=== PATIENT | female | born 1970 | race Caucasian/White ===

== ENCOUNTER 2019-02-13 11:09 | Emergency (ER) | payer OTHER ==
[~2019-02-13] VITALS: Ht 162.6 cm; Wt 79.4 kg
[2019-02-13 11:56] LABS: BASOPHILS ABSOLUTE AUTO 0.05 K/mm3 (0.00-0.23); BASOPHILS PERCENT AUTO 1 % (0-2); EOSINOPHILS ABSOLUTE AUTO 0.21 K/mm3 (0.00-0.68); EOSINOPHILS PERCENT AUTO 4 % (0-6); Hematocrit 44.7 % (33.0-51.0); Hemoglobin 14.7 g/dL (11.5-16.0); IMMATURE GRAN ABSOLUTE AUTO 0.01 K/mm3 (0.00-0.10); IMMATURE GRAN PERCENT AUTO 0 % (0-1); LYMPHOCYTES ABSOLUTE AUTO 2.23 K/mm3 (0.84-5.20); LYMPHOCYTES PERCENT AUTO 46 % (21-46); MONOCYTES ABSOLUTE AUTO 0.42 K/mm3 (0.16-1.47); MONOCYTES PERCENT AUTO 9 % (4-13); Mean Corpuscular HGB 29.5 pg (26.0-34.0); Mean Corpuscular HGB Conc 32.9 g/dL (31.5-36.5); Mean Corpuscular Volume 90 fL (80-100); Mean Platelet Volume 9.7 fL (9.1-12.4); NEUTROPHILS ABSOLUTE AUTO 1.94 K/mm3 (1.96-9.15); NEUTROPHILS PERCENT AUTO 40 % (41-73); Platelet Count 402 K/mm3 (150-400); RDW Coefficient Variation 12.8 % (11.7-14.2); RDW Standard Deviation 41.7 fL (35.1-46.3); Red Blood Cell Count 4.99 M/mm3 (3.80-5.20); White Blood Cell Count 4.86 K/mm3 (4.00-11.30)
[2019-02-13 12:39] LABS: Alanine Aminotransfer (ALT/SGP 42 U/L (12-78); Albumin, Blood 3.8 g/dL (3.4-5.0); Albumin/Globulin Ratio 1.2 (0.8-1.8); Alk Phos 74 U/L (50-136); Anion Gap 7 mmol/L (6-16); Aspartate Aminotrans (AST/SGOT 34 U/L (12-37); Bilirubin, Total 0.5 mg/dL (0.1-1.0); Blood Urea Nitrogen 14 mg/dL (8-24); CO2, Blood 24 mmol/L (21-32); Chloride, Blood 111 mmol/L (98-108); Globulin, Blood 3.3 g/dL (2.2-4.0); Glomerular Filtration Rate >60 (60-); Glucose, Blood 108 mg/dL (70-99); Potassium, Blood 3.7 mmol/L (3.5-5.5); Sodium, Blood 142 mmol/L (136-145); Total Protein, Blood 7.1 g/dL (6.4-8.2)
[2019-02-13] MEDS ORDERED: Imitrex100 MG PO (14:29)
[2019-02-13] MEDS ORDERED: OMEPRAZOLE20 MG PO (14:29)
[2019-02-13] MEDS ORDERED: TRAM50 PO (14:30)
[2019-02-13] MEDS ORDERED: ALBU90OI INH (14:30)
[2019-02-13] MEDS ORDERED: Lotrisone Cream45 GM TOP (15:01)
[2019-02-13] MEDS ORDERED: Cleocin HCl300 MG PO (15:01)
== END 2019-02-13 15:15 | disposition home or self-care (01) ==
LOC: ER 11:09
PROVIDERS: Emergency Medicine
DX: L03.116 Cellulitis of left lower limb (principal); B35.3 Tinea pedis; F17.200 Nicotine dependence, unspecified, uncomplicated; Z88.0 Allergy status to penicillin; Z88.1 Allergy status to other antibiotic agents; Z88.6 Allergy status to analgesic agent; Z88.5 Allergy status to narcotic agent
CPT/HCPCS: 80053; 85025; 96365; 99283-25

== ENCOUNTER 2019-05-30 14:24 | Emergency (ER) | payer OTHER ==
[~2019-05-30] VITALS: Ht 162.6 cm; Wt 81.2 kg
[~2019-05-30 14:24] MED LIST: ALBU90OI INH; Cleocin HCl300 MG PO; Imitrex100 MG PO; Lotrisone Cream45 GM TOP; OMEPRAZOLE20 MG PO; TRAM50 PO
[2019-05-30 14:55] LABS: BASOPHILS ABSOLUTE AUTO 0.07 K/mm3 (0.00-0.23); BASOPHILS PERCENT AUTO 1 % (0-2); EOSINOPHILS ABSOLUTE AUTO 0.26 K/mm3 (0.00-0.68); EOSINOPHILS PERCENT AUTO 4 % (0-6); Hematocrit 45.4 % (33.0-51.0); Hemoglobin 14.8 g/dL (11.5-16.0); IMMATURE GRAN ABSOLUTE AUTO 0.02 K/mm3 (0.00-0.10); IMMATURE GRAN PERCENT AUTO 0 % (0-1); LYMPHOCYTES ABSOLUTE AUTO 2.51 K/mm3 (0.84-5.20); LYMPHOCYTES PERCENT AUTO 35 % (21-46); MONOCYTES ABSOLUTE AUTO 0.58 K/mm3 (0.16-1.47); MONOCYTES PERCENT AUTO 8 % (4-13); Mean Corpuscular HGB 30.1 pg (26.0-34.0); Mean Corpuscular HGB Conc 32.6 g/dL (31.5-36.5); Mean Corpuscular Volume 92 fL (80-100); Mean Platelet Volume 10.2 fL (9.1-12.4); NEUTROPHILS ABSOLUTE AUTO 3.73 K/mm3 (1.96-9.15); NEUTROPHILS PERCENT AUTO 52 % (41-73); Platelet Count 294 K/mm3 (150-400); RDW Coefficient Variation 11.8 % (11.7-14.2); RDW Standard Deviation 39.9 fL (35.1-46.3); Red Blood Cell Count 4.92 M/mm3 (3.80-5.20); White Blood Cell Count 7.17 K/mm3 (4.00-11.30)
[2019-05-30 15:17] LABS: Alanine Aminotransfer (ALT/SGP 45 U/L (12-78); Albumin, Blood 3.9 g/dL (3.4-5.0); Alk Phos 103 U/L (50-136); Anion Gap 5 mmol/L (6-16); Aspartate Aminotrans (AST/SGOT 35 U/L (12-37); Bilirubin, Total 0.2 mg/dL (0.1-1.0); Blood Urea Nitrogen 16 mg/dL (8-24); Bun/Creatinine Ratio 17.4 (12.0-20.0); CO2, Blood 28 mmol/L (21-32); Calcium, Blood 9.4 mg/dL (8.5-10.1); Chloride, Blood 109 mmol/L (98-108); Creatinine, Blood 0.92 mg/dL (0.40-1.00); Globulin, Blood 3.9 g/dL (2.2-4.0); Glomerular Filtration Rate >60 (60-); Glucose, Blood 91 mg/dL (70-99); Potassium, Blood 3.9 mmol/L (3.5-5.5); Sodium, Blood 142 mmol/L (136-145); Total Protein, Blood 7.8 g/dL (6.4-8.2)
[2019-05-30] MEDS ORDERED: ACETAMINOPHEN500 MG PO (16:52)
== END 2019-05-30 19:04 | disposition home or self-care (01) ==
LOC: ER 14:24
PROVIDERS: Nurse Practitioner
DX: R51 Headache (principal); E11.9 Type 2 diabetes mellitus without complications; F17.210 Nicotine dependence, cigarettes, uncomplicated; Z88.0 Allergy status to penicillin; Z88.1 Allergy status to other antibiotic agents; Z88.6 Allergy status to analgesic agent; Z88.5 Allergy status to narcotic agent
CPT/HCPCS: 36415; 71045; 80053; 85025; 96374; 96375; 99283-25; J1200; J1885; J2765; J7120

== ENCOUNTER 2019-07-20 13:12 | Emergency (ER) | payer OTHER ==
[~2019-07-20] VITALS: Ht 162.6 cm; Wt 76.7 kg
[~2019-07-20 13:12] MED LIST changes: +ACETAMINOPHEN500 MG PO
== END 2019-07-20 14:13 | disposition home or self-care (01) ==
LOC: ER 13:12
DX: R07.89 Other chest pain (principal); F17.210 Nicotine dependence, cigarettes, uncomplicated
CPT/HCPCS: 71046; 99283-25

== ENCOUNTER 2019-07-29 14:11 | Emergency (ER) | payer OTHER ==
[~2019-07-29] VITALS: Ht 162.6 cm; Wt 74.8 kg
[2019-07-29] MEDS ORDERED: KETO10 PO (14:47)
== END 2019-07-29 15:20 | disposition home or self-care (01) ==
LOC: ER 14:11
DX: S20.212A Contusion of left front wall of thorax, initial encounter (principal); G43.909 Migraine, unspecified, not intractable, without status migrainosus; Z79.899 Other long term (current) drug therapy; Z88.0 Allergy status to penicillin; Z88.1 Allergy status to other antibiotic agents; Z88.5 Allergy status to narcotic agent; Z88.6 Allergy status to analgesic agent; F17.210 Nicotine dependence, cigarettes, uncomplicated; V89.2XXA Person injured in unspecified motor-vehicle accident, traffic, initial encounter
CPT/HCPCS: 96372; 99283-25; J1885